=== PATIENT | male | born 1950 | race Caucasian/White ===

== ENCOUNTER 2025-02-25 09:00 | Outpatient (CLI) | payer MEDICARE, SELFPAY | END 2025-02-25 09:01 | disposition home or self-care (01) | LOC: WOUND 09:03 | PROVIDERS: Visit Provider Nurse Practitioner Family | DX: L89.154 Pressure ulcer of sacral region, stage 4 (principal); M48.062 Spinal stenosis, lumbar region with neurogenic claudication; I48.19 Other persistent atrial fibrillation; I50.23 Acute on chronic systolic (congestive) heart failure | CPT/HCPCS: 11042; G0463 ==

== ENCOUNTER 2025-03-04 09:12 | Outpatient (CLI) | payer MEDICARE, SELFPAY ==
--- NOTE | 2025-03-04 10:15 | CRLHL7_ITS ---
For Patients: As a result of the Cures Act, medical imaging exams and procedure reports are released immediately into your electronic medical record. You may view this report before your referring provider. If you have questions, please contact your health care provider. INDICATION: Pressure ulcer of the sacral region. Assess for osteomyelitis. TECHNIQUE: Two views of the sacrum/coccyx. FINDINGS: The lower sacrum/coccyx is obscured on the AP view by stool and bowel gas. On the lateral view the cortex of the lower sacrum/coccyx is indistinct. This may be more technical than real. Osteomyelitis is not confidently identified. Subcutaneous/soft tissue gas is not convincingly demonstrated either. Consider CT or even bone scan for further evaluation. 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 IMPRESSION indistinct cortex of the : Indistinct cortex of the lower sacrum/coccyx possibly technical in nature. Osteomyelitis cannot be entirely excluded based on these 2 images alone. Further imaging evaluation is recommended. Dictated by Leroy Sawant MD @ 03/04/2025 12:31:10 PM (Electronically Signed)
== END 2025-03-04 09:13 | disposition home or self-care (01) ==
PROVIDERS: Visit Provider Nurse Practitioner Family
DX: L89.154 Pressure ulcer of sacral region, stage 4 (principal); M48.062 Spinal stenosis, lumbar region with neurogenic claudication; I48.19 Other persistent atrial fibrillation; Z99.3 Dependence on wheelchair
CPT/HCPCS: 11042; 72170

== ENCOUNTER 2025-03-11 09:17 | Outpatient (CLI) | payer MEDICARE, SELFPAY | END 2025-03-11 09:18 | disposition home or self-care (01) | LOC: WOUND 09:18 | PROVIDERS: Visit Provider Nurse Practitioner Family | DX: L89.154 Pressure ulcer of sacral region, stage 4 (principal); M48.062 Spinal stenosis, lumbar region with neurogenic claudication; I48.19 Other persistent atrial fibrillation; I50.23 Acute on chronic systolic (congestive) heart failure | CPT/HCPCS: 97597 ==

== ENCOUNTER 2025-03-19 10:55 | Outpatient (CLI) | payer MEDICARE, SELFPAY | END 2025-03-19 10:56 | disposition home or self-care (01) | LOC: WOUND 10:55 | PROVIDERS: Visit Provider Nurse Practitioner Family | DX: L89.154 Pressure ulcer of sacral region, stage 4 (principal); M48.062 Spinal stenosis, lumbar region with neurogenic claudication; I48.19 Other persistent atrial fibrillation; I50.23 Acute on chronic systolic (congestive) heart failure | CPT/HCPCS: 11042 ==

== ENCOUNTER 2025-03-25 09:18 | Outpatient (CLI) | payer MEDICARE, SELFPAY | END 2025-03-25 09:19 | disposition home or self-care (01) | LOC: WOUND 09:19 | PROVIDERS: Visit Provider Nurse Practitioner Family | DX: L89.154 Pressure ulcer of sacral region, stage 4 (principal); M48.062 Spinal stenosis, lumbar region with neurogenic claudication; I48.19 Other persistent atrial fibrillation; I50.23 Acute on chronic systolic (congestive) heart failure | CPT/HCPCS: 97597 ==

== ENCOUNTER 2025-04-01 09:16 | Outpatient (CLI) | payer MEDICARE, SELFPAY | END 2025-04-01 09:17 | disposition home or self-care (01) | LOC: WOUND 09:16 | PROVIDERS: Visit Provider Nurse Practitioner Family | DX: L89.154 Pressure ulcer of sacral region, stage 4 (principal); M48.062 Spinal stenosis, lumbar region with neurogenic claudication; I48.19 Other persistent atrial fibrillation; I50.23 Acute on chronic systolic (congestive) heart failure | CPT/HCPCS: G0463 ==

== ENCOUNTER 2025-04-01 10:07 | Outpatient (CLI) | payer MEDICARE, SELFPAY ==
--- NOTE | 2025-04-01 10:15 | CRLHL7_ITS ---
For Patients: As a result of the Century Cures Act, medical imaging exams and procedure reports are released immediately into your electronic medical record. You may view this report before your referring provider. If you have questions, please contact your health care provider. CLINICAL INDICATION: Pressure ulcer of sacral region/tailbone. COMPARISON IMAGING STUDIES: Radiographs from 03/04/2025. TECHNICAL: Axial, sagittal and coronal T1, stir and postcontrast T1 weighted images with fat saturation were obtained of the pelvis. 15 milliliters of Dotarem intravenous gadolinium was administered. 1.5 abdirizak MRI scanner. FINDINGS: SACRUM, COCCYX AND SACROILIAC JOINTS: There is a soft tissue wound superficial to the lower sacrum and coccyx. Increased enhancement of the soft tissues in that region compatible with inflammatory change/cellulitis. There is no associated fluid collection to suggest a soft tissue abscess. No osteomyelitis of the coccyx or lower sacrum. Incidental note is made of perineural cysts at S2. There are degenerative changes within the lower lumbar spine. Degenerative changes of the sacroiliac joints. Small area of focal ankylosis across the anterior superior right sacroiliac joint. RIGHT HIP: Degenerative arthrosis of the right hip. There is grade 4 full-thickness cartilage abnormality and degenerative labral tearing. No excessive hip joint fluid. LEFT HIP: Degenerative arthrosis of the left hip. Grade 4 cartilage abnormality. Degenerative labral tearing. No hip joint effusion. OSSEOUS STRUCTURES: No acute fracture. No avascular necrosis of the femoral head on either side. MUSCULOTENDINOUS STRUCTURES AND BURSAE: No distal gluteal tendon tear nor trochanteric bursal fluid collection. Tendinosis of the bilateral common hamstring tendons. Mild right iliopsoas bursitis. No distal iliopsoas tendon tear on either side. OTHER FINDINGS: Degenerative changes of the spine. INTRAPELVIC CONTENTS: Large amount of stool within the rectum. Padilla catheter within urinary bladder. IMPRESSION: 1. Soft tissue ulcer superficial to the coccyx and lower sacrum. Increased enhancement of the underlying soft tissues suggesting inflammatory change or cellulitis. 2. No associated fluid collection. 3. No osteomyelitis of the sacrum or coccyx. 4. Advanced degenerative arthrosis both hips. 5. Degenerative changes within the spine. Dictated by Royce Hendrickson MD @ 04/02/2025 9:34:06 AM (Electronically Signed)
== END 2025-04-01 10:08 | disposition home or self-care (01) ==
LOC: MRI 10:08
PROVIDERS: Visit Provider Nurse Practitioner Family
DX: L89.154 Pressure ulcer of sacral region, stage 4 (principal); M16.0 Bilateral primary osteoarthritis of hip
CPT/HCPCS: 72197; G0463; A9575

== ENCOUNTER 2025-04-08 09:17 | Outpatient (CLI) | payer MEDICARE, SELFPAY | END 2025-04-08 09:18 | disposition home or self-care (01) | PROVIDERS: Visit Provider Nurse Practitioner Family | DX: L89.154 Pressure ulcer of sacral region, stage 4 (principal); M48.062 Spinal stenosis, lumbar region with neurogenic claudication; I50.23 Acute on chronic systolic (congestive) heart failure; I48.19 Other persistent atrial fibrillation | CPT/HCPCS: 11042; 87070; 87186 ==

== ENCOUNTER 2025-04-15 09:15 | Outpatient (CLI) | payer MEDICARE, SELFPAY ==
[2025-04-15 10:24] LABS: Hematocrit* 37.4 % (37.0-53.0); Hemoglobin* 12.2 gm/dL (13.5-17.5); Immature Granulocytes Abs Auto 0.02 K/uL (0.00-0.30); Immature Granulocytes Pct Auto 0.2 %; Lymphocytes Absolute Auto 1.91 K/uL (0.90-2.90); Mean Corpuscular HGB Conc 33 gm/dL (32-36); Mean Corpuscular Hemoglobin 31 pg (26-34); Mean Corpuscular Volume 94 fL (80-100); RDW Coefficient of Variation % 12.6 % (11.5-15.5); Red Blood Count* 3.96 m/uL (4.30-5.90); White Blood Count* 9.09 K/uL (4.50-11.00)
[2025-04-15 10:27] LABS: Slide Review Reflex No
[2025-04-15 10:34] LABS: Albumin* 4.0 g/dL (3.3-5.0); Chloride* 100 mmol/L (96-114); Sodium* 139 mmol/L (135-149)
[2025-04-15 10:35] LABS: Potassium* 4.8 mmol/L (3.6-5.1)
[2025-04-15 10:37] LABS: Alanine Aminotransferase* 20 U/L (4-50); Aspartate Amino Transferase* 38 U/L (12-35); Blood Urea Nitrogen* 30 mg/dL (7-30); Creatinine* 0.8 mg/dL (0.5-1.5); Estimated Glomerular Filt Rate 92 ml/min
[2025-04-15 10:38] LABS: Alkaline Phosphatase* 95 U/L (40-150); Anion Gap 5 mEq/L (7-15); Bilirubin Total* 0.3 mg/dL (0.1-1.5); Calcium* 9.3 mg/dL (8.4-10.6); Carbon Dioxide* 34 mmol/L (20-32); Glucose* 68 mg/dL (60-115); Total Protein* 7.3 g/dL (6.0-8.3)
== END 2025-04-15 09:16 | disposition home or self-care (01) ==
LOC: WOUND 09:15
PROVIDERS: Visit Provider Nurse Practitioner Family
DX: L89.154 Pressure ulcer of sacral region, stage 4 (principal); B96.5 Pseudomonas (aeruginosa) (mallei) (pseudomallei) as the cause of diseases classified elsewhere; I48.19 Other persistent atrial fibrillation; I50.23 Acute on chronic systolic (congestive) heart failure; M48.062 Spinal stenosis, lumbar region with neurogenic claudication
CPT/HCPCS: 36415; 80053; 85025; 86140; G0463

== ENCOUNTER 2025-04-22 09:27 | Outpatient (CLI) | payer MEDICARE, BC, SELFPAY | END 2025-04-22 09:28 | disposition home or self-care (01) | LOC: WOUND 09:27 | PROVIDERS: Visit Provider Nurse Practitioner Family | DX: L89.154 Pressure ulcer of sacral region, stage 4 (principal); M48.062 Spinal stenosis, lumbar region with neurogenic claudication; I48.19 Other persistent atrial fibrillation; I50.23 Acute on chronic systolic (congestive) heart failure | CPT/HCPCS: 11042 ==

== ENCOUNTER 2025-04-29 09:13 | Outpatient (CLI) | payer MEDICARE, BC, SELFPAY | END 2025-04-29 09:14 | disposition home or self-care (01) | LOC: WOUND 09:14 | PROVIDERS: Visit Provider Nurse Practitioner Family | DX: L89.154 Pressure ulcer of sacral region, stage 4 (principal); M48.062 Spinal stenosis, lumbar region with neurogenic claudication; I48.19 Other persistent atrial fibrillation; I50.23 Acute on chronic systolic (congestive) heart failure | CPT/HCPCS: G0463 ==

== ENCOUNTER 2025-05-06 09:16 | Outpatient (CLI) | payer MEDICARE, BC, SELFPAY | END 2025-05-06 09:17 | disposition home or self-care (01) | LOC: WOUND 09:16 | PROVIDERS: Visit Provider Nurse Practitioner Family | DX: L89.154 Pressure ulcer of sacral region, stage 4 (principal); M48.062 Spinal stenosis, lumbar region with neurogenic claudication; I48.19 Other persistent atrial fibrillation; I50.23 Acute on chronic systolic (congestive) heart failure | CPT/HCPCS: 11042 ==

== ENCOUNTER 2025-05-13 09:10 | Outpatient (CLI) | payer MEDICARE, BC, SELFPAY | END 2025-05-13 09:11 | disposition home or self-care (01) | LOC: WOUND 09:11 | PROVIDERS: Visit Provider Nurse Practitioner Family | DX: L89.154 Pressure ulcer of sacral region, stage 4 (principal); M48.062 Spinal stenosis, lumbar region with neurogenic claudication; I48.19 Other persistent atrial fibrillation; I50.23 Acute on chronic systolic (congestive) heart failure | CPT/HCPCS: G0463 ==

== ENCOUNTER 2025-05-27 09:12 | Outpatient (CLI) | payer MEDICARE, BC, SELFPAY | END 2025-05-27 09:13 | disposition home or self-care (01) | LOC: WOUND 09:12 | PROVIDERS: Visit Provider Nurse Practitioner Family | DX: L89.154 Pressure ulcer of sacral region, stage 4 (principal); M48.062 Spinal stenosis, lumbar region with neurogenic claudication; I48.19 Other persistent atrial fibrillation; I50.23 Acute on chronic systolic (congestive) heart failure | CPT/HCPCS: G0463 ==

== ENCOUNTER 2025-06-24 09:10 | Outpatient (CLI) | payer MEDICARE, BC, SELFPAY | END 2025-06-24 09:11 | disposition home or self-care (01) | LOC: WOUND 09:11 | PROVIDERS: Visit Provider Nurse Practitioner Family | DX: M48.062 Spinal stenosis, lumbar region with neurogenic claudication (principal); I50.23 Acute on chronic systolic (congestive) heart failure; I48.19 Other persistent atrial fibrillation; Z87.2 Personal history of diseases of the skin and subcutaneous tissue | CPT/HCPCS: G0463 ==